=== PATIENT | female | born 1985 ===

== ENCOUNTER 2017-02-07 09:03 | Day surgery (SDC) | payer OTHER ==
[2017-02-05 10:14] VITALS: BMI 33.2
[2017-02-07 10:22] LABS: HEMOGLOBIN 11.6 g/dL (12.0-16.0); MEAN CELL VOLUME 80.3 fl (81.0-99.0); MEAN CORPUSCULAR HEMOGLOBIN 26.5 pg (27.0-31.0); RBC 4.36 Mil/uL (3.80-5.20); RED CELL DISTRIBUTION WIDTH 17.1 % (11.5-14.5); WHITE BLOOD COUNT 8.2 K/uL (4.8-10.8)
[2017-02-07] MEDS ORDERED: Lactated Ringer's 1,000 ML IV ONE ×2 (10:30→12:44)
[2017-02-07] MEDS ORDERED: Bupivacaine 0.5% Inj(30mL) ONE (10:37)
[2017-02-07] MEDS ORDERED: Rocuronium 10 mg/ml (5 ml) ONE (10:47)
[2017-02-07] MEDS ORDERED: Propofol 10 mg/ml Inj (20 ML) ONE (10:47)
[2017-02-07] MEDS ORDERED: Neostigmine Methylsulfate 2 MG/2 ML ML IV ONE (10:48)
[2017-02-07] MEDS ORDERED: Succinylcholine 200 mg/10 ml Inj IV ONE (10:50)
[2017-02-07] MEDS ORDERED: Bupivacaine 0.5% Inj(30mL) IJ ONE (11:18)
[2017-02-07] MEDS ORDERED: Sevoflurane - Inhalation Anesthetic Liq (250 ml) ONE (11:25)
[2017-02-07] MEDS ORDERED: HYDROmorphone 0.5 mg/0.5 ml ISec IVP PRN (12:24)
[2017-02-07] MEDS ORDERED: Lactated Ringer's 1,000 ML IV SCH (12:24)
[2017-02-07] MEDS ORDERED: Oxycodone/Acetaminophen 5/325 mg Tab PO PRN (14:26)
[2017-02-07 14:52] VITALS: RESP 18; TEMP 97.4; O2SAT 99
[2017-02-07 15:46] VITALS: BP 114/73; PULSE 70
--- NOTE | 2017-02-08 04:45 | OP ---
DATE: 02/07/2017 PREOPERATIVE DIAGNOSIS: Voluntary sterilization. POSTOPERATIVE DIAGNOSIS: Voluntary sterilization. OPERATION PERFORMED: Laparoscopic tubal ligation. SURGEON: Carlos Velasquez MD PEDIATRIC INTENSIVE PHYSICIAN: Dr. Bonds. The patient was straight cathed for starting procedure. ESTIMATED BLOOD OF LOSS: Minimal. The patient was received approximate 100 mL D5 LR intraoperatively. OPERATIVE FINDINGS: Normal ovaries, tubes, uterus normal appearance with a fundal 3 cm myoma. PROCEDURE: After performed consent was obtained, we discussed risks, benefits and alternatives to tubal ligation. We discussed medical and nonmedical alternatives. We discussed vasectomy. The patient opted for sterilization. Informed consent was obtained. The patient was taken to the operating room where she was given general anesthesia. She was then placed in a modified lithotomy position and placed in the [facility]. The patient was then prepped and draped in the usual sterile fashion. A weighted speculum was inserted into the vagina. Cervix was visualized grasped with single tooth tenaculum. The cervix then gently dilated and the HUMI manipulator was inserted into the uterine cavity and used to manipulate the uterus. Attention was then turned to the umbilicus. Marcaine was infused. A 5 mm incision was made. The abdomen was then tented upward, a Veress needle was inserted into the abdominal cavity. Placement was confirmed with the fluid filled syringe. The abdomen was then insufflated to 50 mm/Hg. A 5 mm port was then introduced in the abdominal cavity and placement was confirmed with the laparoscope. The abdomen was then surveyed and there were adhesions noted anteriorly down the anterior abdominal wall from her previous delivery and we also noted the findings noted above. Attention was then turned to the left side of the patient's abdomen approximately 3 cm superior to the left anterior superiorly at crest. The skin was infused with Marcaine. A 5 mm incision was made and a 5 mm port was introduced under direct visualization. A laparoscopic scissors was then introduced into the abdominal cavity. The adhesions were lysed. Once we were able to identify both tubes, we terminated the adhesiolysis. They were lysed using both sharp and blunt dissection. Attention was then turned to the right fallopian tube. It was serially coagulated with the LigaSure device, then transected. Similar procedure was performed on the left. Pictures were taken for documentation. Hemostasis was noted. All instruments were then removed from the abdomen and vagina. Sponge, lap, needle and instruments counts were correct x2. The skin was closed with Dermabond and the patient was taken to the recovery room awake in stable condition. Carlos Velasquez MD MTDJa
== END 2017-02-07 16:35 | disposition home or self-care (01) ==
LOC: H.OPSURG 09:03
PROVIDERS: ATTEND Obstetrics & Gynecology Gynecology
DX: Z30.2 Encounter for sterilization (principal)

== ENCOUNTER 2017-11-30 20:49 | Emergency (ER) | payer SELFPAY ==
[2017-11-30 20:49] VITALS: BMI 33.2
[2017-11-30 20:56] VITALS: RESP 18; TEMP 97.7
[2017-11-30] MEDS ORDERED: Sodium Chloride 0.9% 1,000 ML IV STA (21:20)
--- NOTE | 2017-11-30 21:32 | ED PDOC ---
HPI: Abdomen History Per: Patient History/Exam Limitations: no limitations Onset/Duration Of Symptoms: Hrs Outside of [place] travel?: No Current Symptoms Are (Timing): Still Present Context: Food Severity: Mild Location Of Pain/Discomfort: RUQ, Epigastric, LUQ Quality Of Discomfort: Sharp Associated Symptoms: Vomiting, Diarrhea Exacerbating Factors: Movement Alleviating Factors: Rest Last Bowel Movement: Today <Amos Spence - Last Filed: 12/01/17 01:27> <Flory Dickerson - Last Filed: 12/01/17 16:29> Time Seen by Provider: 11/30/17 20:58 Chief Complaint (Nursing): GI Problem Additional Complaint(s): 32 y/o woman w/ no pmh presents to ED w/ diarrhea, vomit, and abdominal pain. Patient reports symptoms started yesterday afternoon at 16:00. Patient reports x10 episodes of watery, non-bloody diarrhea starting yesterday w/ most recent episode while in ED. Patient reports x3 episodes of non-bloody/non-bilious vomit. Patient reports RUQ pain, sharp in nature, radiates along epigastric and LUQ, relieved w/ rest, worsened w/ movement, very mild relief w/ Aleve x2 last night. Patient reports last meal prior to symptoms was ceviche which was prepared at home by her family. Patient reports multiple members also w/ diarrhea and vomit after consumption of ceviche but patient reports worsened for her. Patient reports tiredness and decreased urine output but denies headaches, chest pain, SOB, dysuria, or fever. PMD: Dr. Pratt PMH: none meds: none allergies: NKDA PSH: cholecystectomy 2008, x2 (2014, 2016), BTL 2017 Fam: mother DM2 SOC: denies smoking, alcohol, and drugs ROS: 12 points assessed and negative unless otherwise reported in HPI (Amos Spence) Supervising Attending Note - Supervising Attending Note The Documented history was done by the: Physician Business Services Officer The documented physical exam was done by the: Physician Business Services Officer, Attending Physician - Attestation: I have personally seen and examined this patient.: Yes I have fully participated in the care of the patient.: Yes I have reviewed all pertinent clinical information: Yes <Flory Dickerson Filed: 12/01/17 16:29> Past Medical History Reviewed: Historical Data, Nursing Documentation, Vital Signs - Medical History PMH: Anemia Denies: Chronic Kidney Disease - Surgical History Surgical History: Cholecystectomy, Endoscopy - Family History Family History: States: Unknown Family Hx <Amos Spence - Last Filed: 12/01/17 01:27> <TuanSyedaFlory J - Last Filed: 12/01/17 16:29> Vital Signs: Last Vital Signs Temp 97.7 F 11/30/17 20:51 Pulse 78 12/01/17 00:57 Resp 18 12/01/17 00:57 BP 133/68 12/01/17 00:57 Pulse Ox 99 12/01/17 06:13 - Home Medications Home Medications: Ambulatory Orders Medication Instructions Recorded Pnv with Ca,No.70/Iron/FA/Dha 1 tab PO DAILY 11/12/16 [Calcium-Pnv 28-1-250 mg Sftgl] Ferrous Sulfate 325 mg PO DAILY #60 tablet 11/16/16 oxyCODONE/Acetaminophen [Percocet 1 tab PO Q4 PRN 02/07/17 5/325 mg Tab] - Allergies Allergies/Adverse Reactions: Allergies Allergy/AdvReac Type Severity Reaction Status Date / Time No Known Allergies Allergy Verified 05/20/16 15:00 Review of Systems ROS Statement: Except As Marked, All Systems Reviewed And Found Negative Constitutional: Positive for: Weakness Cardiovascular: Negative for: Chest Pain Respiratory: Negative for: Cough, Shortness of Breath Gastrointestinal: Positive for: Vomiting, Abdominal Pain, Diarrhea. Negative for: Hematochezia, Hematemesis Genitourinary Female: Negative for: Dysuria, Frequency, Pelvic Pain Skin: Negative for: Rash <Amos Spence - Last Filed: 12/01/17 01:27> Physical Exam - Reviewed Nursing Documentation Reviewed: Yes Vital Signs Reviewed: Yes - Physical Exam Appears: Positive for: No Acute Distress Head Exam: Positive for: ATRAUMATIC, NORMAL INSPECTION, NORMOCEPHALIC Skin: Positive for: Normal Color, Warm, Dry ENT: Positive for: Other (dry mucous membranes) Neck: Positive for: Normal, Painless ROM, Supple Cardiovascular/Chest: Positive for: Regular Rate, Rhythm. Negative for: Chest Non Tender, Murmur, Bradycardia Respiratory: Positive for: Normal Breath Sounds. Negative for: Decreased Breath Sounds, Accessory Muscle Use, Crackles, Rales, Rhonchi, Wheezing, Respiratory Distress Pulses-Carotid (L): 2+ Pulses-Carotid (R): 2+ Pulses-Radial (L): 2+ Pulses-Radial (R): 2+ Gastrointestinal/Abdominal: Positive for: Bowel Sounds, Soft, Tenderness ( epighastric and LUQ). Negative for: Mass, Distended, Guarding, Rebound Extremity: Positive for: Normal ROM. Negative for: Tenderness Neurologic/Psych: Positive for: Alert, Oriented <Amos Spence - Last Filed: 12/01/17 01:27> - Laboratory Results Result Diagrams: 11/30/17 22:11/30/17 23:35 - ECG O2 Sat by Pulse Oximetry: 100 <Amos Spence - Last Filed: 12/01/17 01:27> - Laboratory Results Result Diagrams: 11/30/17 22:11/30/17 23:35 <Flory Dickerson - Last Filed: 12/01/17 16:29> Medical Decision Making <mAos Spence - Last Filed: 12/01/17 01:27> <Flory Dickerson - Last Filed: 12/01/17 16:29> Medical Decision Makin32 y/o woman w/ no pmh presents to ED w/ diarrhea, vomit, and abdominal pain. CBC: 7.7>14.4/42.3<242 CMP: 139/3.2, 104/16, 13/0.5, glucose 111, AST 88, ALT 148, alk phos 117 lipase: 32 lactic acid 0.9 PT: 12.5 INR: 1.1 aPTT: 31.2 blood culture stool culture stool ova/parasites urine preg: negative urine dip: negative glucose, ketones, nitrates, and leukocyte esterase; moderate blood IVF NS 1 L zofran 4 mg PO bentyl 20 mg PO re-evaluated 23:50 patient reports feeling better re-evaluated 01:10 KCl 40 meq PO given PO challenge - tolerated, no vomit, no diarrhea, pain resolved dispo DC home, follow up w/ PMD in 2-3 days (Amos Spence) Disposition - Patient ED Disposition Is Patient to be Admitted: No - Disposition Disposition: Routine/Home Disposition Time: 01:28 - POA Present On Arrival: None <Amos Spence - Last Filed: 12/01/17 01:27> <Flory Dickerson - Last Filed: 12/01/17 16:29> - Clinical Impression Clinical Impression: Gastroenteritis - Disposition [facility]errals[facility]Outside] [facility] [Outside] Condition: FAIR Additional Instructions: follow up with your primary doctor in 1-2 days return to the ED with any worsening or concerning symptoms Instructions: Viral Gastroenteritis Forms: [employer] (Uzbek), [facility] ED School/Work Excuse
[2017-11-30 21:52] LABS: BASO % 0.4 % (0.0-2.0); EOS % 0.2 % (0.0-4.0); HEMOGLOBIN 14.4 g/dL (12.0-16.0); LYMPH # 0.6 K/uL (1.0-4.3); LYMPH % 7.6 % (20.0-40.0); MEAN CELL VOLUME 83.7 fl (81.0-99.0); MEAN CORPUSCULAR HEMOGLOBIN 28.5 pg (27.0-31.0); MEAN PLATELET VOLUME 7.8 fl (7.2-11.7); MONO # 0.3 K/uL (0.0-0.8); MONO % 3.6 % (0.0-10.0); NEUT # 6.8 K/uL (1.8-7.0); NEUT % 88.2 % (50.0-75.0); PLATELET COUNT 242 K/uL (130-400); RBC 5.05 Mil/uL (3.80-5.20); RED CELL DISTRIBUTION WIDTH 14.2 % (11.5-14.5); WHITE BLOOD COUNT 7.7 K/uL (4.8-10.8)
[2017-11-30 22:14] LABS: INR 1.1 (0.9-1.2); PARTIAL THROMBOPLASTIN TIME 31.2 Seconds (25.6-37.1); PROTHROMBIN TIME 12.5 Seconds (9.8-13.1)
[2017-11-30 23:07] LABS: BANDS 5 % (0-2); LYMPHOCYTE 11 % (20-50); MONOCYTE 3 % (0-10); NEUTROPHIL 76 % (42-75); REACTIVE LYMPHOCYTES 5 % (0-0); TOTAL CELLS COUNTED 100
[2017-11-30 23:08] LABS: PLATELET ESTIMATE NORMAL (NORMAL); SMUDGE CELLS PRESENT
[2017-11-30 23:45] LABS: ALBUMIN 4.1 g/dL (3.5-5.0); ALT/SGPT 148 U/L (9-52); AST/SGOT 88 U/L (14-36); BLOOD UREA NITROGEN 13 mg/dl (7-17); CALCIUM 8.2 mg/dL (8.4-10.2); GFR AFRICAN-AMERICAN > 60; GFR NON-AFRICAN AMERICAN > 60; LIPASE 32 U/L (23-300)
[2017-11-30] MEDS ORDERED: Potassium Chloride 20 mEq ER Tab PO STA (23:49)
[2017-12-01] MEDS ORDERED: Potassium Chloride 20 mEq ER Tab PO ONE (00:53)
[2017-12-01 00:57] VITALS: BP 133/68; PULSE 78
--- NOTE | 2017-12-01 01:01 | ED PDOC ---
- Laboratory Results Result Diagrams: 11/30/17 22:05 11/30/17 23:35 - ECG O2 Sat by Pulse Oximetry: 99 Medical Decision Making Medical Decision Making: Time: 00:00 --Patient endorsed to provider from Dr. Flory Dickerson. Pending PO trial. passed trial stable for dc Scribe Attestation: Documented by Yael Pittman, acting as a scribe for Kain Gray MD. Provider Scribe Attestation: All medical record entries made by the Scribe were at my direction and personally dictated by me. I have reviewed the chart and agree that the record accurately reflects my personal performance of the history, physical exam, medical decision making, and the department course for this patient. I have also personally directed, reviewed, and agree with the discharge instructions and disposition. Disposition Counseled Patient/Family Regarding: Studies Performed, Diagnosis, Need For Followup - Clinical Impression Clinical Impression: Gastroenteritis - POA Present On Arrival: None - Disposition Referrals: [facility] [Outside] [facility] [Outside] Disposition: Routine/Home Disposition Time: 02:00 Condition: IMPROVED Additional Instructions: follow up with your primary doctor in 1-2 days return to the ED with any worsening or concerning symptoms Instructions: Viral Gastroenteritis Forms: [employer] (Bhutanese), [facility] ED School/Work Excuse
[2017-12-01 06:13] VITALS: O2SAT 99
== END 2017-12-01 01:40 | disposition home or self-care (01) ==
LOC: H.ER 20:49
DX: K52.9 Noninfective gastroenteritis and colitis, unspecified (principal); Z90.49 Acquired absence of other specified parts of digestive tract
CPT/HCPCS: 80053; 81025; 83605; 83690; 85025; 85610; 85730; 87040; 87045; 87177; 87209; 96360; 99283; J7040